=== PATIENT | male | born 1935 | race Caucasian/White ===

== ENCOUNTER 2016-04-23 06:56 | Inpatient (IN) | payer MEDICARE ==
--- NOTE | ~2016-04-23 | HP ---
History And Physical [id number] [place]. [address] NAME: ALEJANDRA JOHNS : 37 STATUS : ADM IN [facility]#: [id number] AGE: 81 ADM/REG DATE : 04/23/16 MR#: [id number] REPORT SERV DATE: 04/23/16 DICTATED BY: BRANDON ADAMSON. DATE: 04/23/16 REPORT STATUS : Draft TRANSCRIBED BY: MODL DATE: 04/23/16 DATE OF ADMISSION: 04/23/2016 CHIEF COMPLAINT: Shortness of breath. HISTORY OF PRESENT ILLNESS: An 81-year-old white male with past medical history of atrial fibrillation on anticoagulation, coronary artery disease, status post CABG x5, COPD on chronic 2 L of oxygen, diabetes type 2, peripheral arterial disease, presenting with shortness of breath x1 day. Apparently, the patient had a shortness of breath at approximately 0530 hours this morning. The patient states that, he had a recent left heart cath that was done on , 04/20/2016. Dr. Sharan Christensen, did the heart catheterization, which shows the patient having a stent occlusion that will be redone. Unfortunately, the patient states that he needs to wait until his kidney function improves before having another procedure. Unfortunately, the patient continues to smoke despite having these stent blockages. The patient states, he smokes at least a pack a day. His shortness of breath that occurred this morning prompted the patient to come to the hospital for further evaluation and treatment. The patient states that, he does have orthopnea, and he does have paroxysmal nocturnal dyspnea. He does sleep on a recliner. The patient cannot sleep lying flat. He denies any chest pain or palpitation. In addition, he has more dyspneic with physical exertion. He says, his distance of walking before short of breath is getting shorter. Nothing made the shortness of breath better or worse. He is coughing up some sputum, but the patient stated it is too dry at this time. PAST MEDICAL HISTORY: As above. MEDICATIONS: 1. The patient takes albuterol two puffs q.4 hours p.r.n. 2. Albuterol nebulizers q.4 hours p.r.n. 3. Eliquis 2.5 mg p.o. b.i.d. 4. Aspirin 81 mg daily. 5. Lipitor 80 mg p.o. at bedtime. 6. Bumex 1 mg p.o. q.a.m. 7. Vitamin D3 1000 units p.o. q.a.m. 8. Coenzyme Q 100 mg p.o. at bedtime. 9. Cardizem CD 360 mg p.o. daily. 10.Breo Ellipta 200/25 one puff b.i.d. 11.[place] 5/325 one tab q.6h p.r.n. 12.Xyzal 5 mg p.o. at bedtime. 13.Metoprolol 12.5 mg p.o. b.i.d. 14.Nitroglycerin sublingual p.r.n. 15.Potassium 20 mEq daily. ALLERGIES: TO MORPHINE AND TRAMADOL. SOCIAL HISTORY: Active smoker, one pack per day, nondrinker. History And Physical [address] [address] NAME: JOHNSALEJANDRA Kirsten : 37 STATUS : ADM IN [facility]#: [id number] AGE: 81 ADM/REG DATE : 04/23/16 MR#: [id number] REPORT SERV DATE: 04/23/16 DICTATED BY: BRANDON ADAMSON. DATE: 04/23/16 REPORT STATUS : Draft TRANSCRIBED BY: CALLUM DATE: 04/23/16 FAMILY HISTORY: Significant for aneurysm, kidney disease, and pancreatic cancer. REVIEW OF SYSTEMS: A 10-point review of systems conducted, which were negative except for above complaints. PHYSICAL EXAMINATION: VITAL SIGNS: Temp of 97.6, pulse of 167, respiratory rate 28, BP 114/101, O2 saturation 96% on 2 L. HEAD AND NECK: Normocephalic, atraumatic. CARDIOVASCULAR: S1, S2. Irregularly irregular. LUNGS: Decreased air entry at the bases. No wheezes, rales, or rhonchi. ABDOMEN: Soft, nontender, nondistended. Positive bowel sounds. No organomegaly. EXTREMITIES: No clubbing, cyanosis, or edema. NEUROLOGICAL: The patient is awake, alert, oriented x3. Cranial nerves 2 through 12 grossly intact. LABORATORY DATA: Sodium 139, potassium 4.1, chloride 104, bicarb 28, BUN 15, creatinine 0.92, glucose 144, calcium 9.8, magnesium 1.8. WBC 8.2, hemoglobin 13.9, hematocrit 38.5, platelets 231. ABG on 2 L shows pH of 7.39, pCO2 of 45, PaO2 of 71, bicarb 26.5, O2 saturation 94.3. Chest x-ray shows nonspecific bibasilar atelectatic changes in both lung bases, appears stable, old calcified plaque left side. EKG shows atrial fibrillation with 144 beats per minute. No gross ST elevation or depression appreciated. ASSESSMENT AND PLAN: 1. Shortness of breath secondary to acute exacerbation of chronic obstructive pulmonary disease with tobacco use. Advised the patient to quit smoking. In addition, we will start the patient on nicotine patches. We will also continue with Solu-Medrol for 20 mg IV b.i.d. with doxycycline 100 mg p.o. daily. In addition, we will also start the patient on breathing treatments. 2. Acute exacerbation of chronic obstructive pulmonary disease secondary to tobacco abuse. I advised the patient to quit smoking. Cause of problem #1. 3. Coronary artery disease, status post CABG. As per patient, the patient underwent heart cath on , 04/20/2016. The patient does have a stent block. The patient states that, he is supposed to undergo revascularization at later date due to his renal function. We will try to give the patient some IV hydration to help with his renal function. 4. Atrial fibrillation. Continue the patient on Eliquis and Cardizem for rate control. 5. Chronic hypoxic hypercapnic respiratory failure. Continue the patient's oxygen at 2 L. 6. Diabetes type 2. The patient is diet controlled. We will check HbA1c to see if his sugars are elevated. 7. Peripheral arterial disease, currently asymptomatic. 8. DVT prophylaxis. We will continue with the Eliquis. History And Physical [address] [address] NAME: JOHNSALEJANDRA TAVERAS Kirsten : 37 STATUS : ADM IN [facility]#: [id number] AGE: 81 ADM/REG DATE : 04/23/16 MR#: [id number] REPORT SERV DATE: 04/23/16 DICTATED BY: BRANDON ADAMSON DATE: 04/23/16 REPORT STATUS : Draft TRANSCRIBED BY: CALLUM DATE: 04/23/16 ANOOP/CALLUM Brandon Adamson MD / [id number] CC: Brandon Adamson MD
--- NOTE | ~2016-04-23 | DS ---
Discharge Summary [facility] [address] [facility] [place]. [address] NAME: ALEJANDRA JOHNS : 37 STATUS : DIS IN PAT#: [id number] AGE: 81 ADM/REG DATE : 04/23/16 MR#: [id number] REPORT SERV DATE: 04/29/16 DICTATED BY: ENA CROUCH DATE: 04/29/16 REPORT STATUS : Draft TRANSCRIBED BY: MODL DATE: 04/29/16 ADMISSION DATE: 04/23/2016 DISCHARGE DATE: 04/29/2016 DISCHARGE DIAGNOSIS: 1. Acute on chronic respiratory failure, improved, back to his normal breathing status. 2. Acute on chronic chronic obstructive pulmonary disease exacerbation. 3. Cor pulmonale, the patient was treated with extra Bumex IV and had improvement. 4. Coronary artery disease. 5. Sputum positive for Stenotrophomonas, was put on Bactrim, tolerating very well. There is no evidence of pneumonia. 6. Chronic atrial fibrillation. HISTORY OF PRESENT ILLNESS: This is an 81-year-old male patient, who does have COPD and also occluded coronary artery disease, who came to the hospital with a complaint of shortness of breath. The patient was treated as a COPD exacerbation initially. When I started to take care of this patient, a more fluid-related issue was noted. He was given extra Bumex and then improved very well; however, he still has the "spells." The spells are usually come in the morning time, between 3 to 6 and up to 8 o'clock in the morning time with the feeling of chest tightness. Initially, I thought that was related with lung disease or hypoxia, but he did not show significant hypoxia level along with these spells. Therefore, Dr. Christensen was consulted to look at his symptoms again for possible angina symptoms. Dr. Christensen said there is nothing procedure-suresh that can be done for this patient, he does have a very complicated coronary artery disease, but he has had a negative stress test perfusion-suresh, so he had a negative stress test last month and had to have a cardiac catheterization due to the Holter monitor showing a bidirectional ventricular tachycardia which was not reproduced on this admission. When he did a cardiac catheterization, he saw some occluded stent, but it was not mechanically reversible. He told the patient, and the patient is not a candidate for anything procedure-suresh but also he does have pretty good ejection fraction and the perfusion study was negative. Therefore, he recommended continuing nitroglycerin, long acting, for possible happening of his symptoms early in the morning time. I recommend the patient to increase his home oxygen during the nighttime up to 4 L and taking the mononitrate at nighttime and to see the improvement. Overall, when he presented in the hospital, even the very first day, his ABG was not very abnormal at all. The pH was 7.4, pCO2 was 42, pO2 was 87, and bicarb was 25.3. 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 The patient and family are pleased and understood about the current treatment plan and followup plan, he maximized inpatient benefit, and will be discharged to home. DISCHARGE MEDICATION: Imdur 60 mg once a day and continue other medications including Eliquis 2.5 mg twice a day, aspirin 81 mg once a day, Lipitor 80 mg once at nighttime, Bumex 1 mg once in the morning time, coenzyme Q once a day, Cardizem 360 mg once a day, Xyzal 5 mg Discharge Summary [address] [address] NAME: ALEJANDRA JOHNS : 37 STATUS : DIS IN PAT#: [id number] AGE: 81 ADM/REG DATE : 04/23/16 MR#: [id number] REPORT SERV DATE: 04/29/16 DICTATED BY: ENA CROUCH DATE: 04/29/16 REPORT STATUS : Draft TRANSCRIBED BY: MODL DATE: 04/29/16 once at bedtime, Lopressor 12.5 mg twice a day, Bactrim DS twice a day, seven more days, and continue the [place] as needed. Continue the Breo and albuterol as needed. DISPOSITION: The patient is discharged to home in stable condition with family. The patient will be followed by primary care physician, Dr. Wahl, and Dr. Christensen as an outpatient. TIME SPENT: More than 30 minutes on discharge coordination and education. EKL/MODL Ena Crouch M.D. / [id number] CC: Ena Crouch M.D.
[~2016-04-23 06:56] MED LIST: ADVAIR250 INH; ASAB PO; AUG500 PO; BREO ELLIPTA 21 EACH INH; BUM1 PO; CARDCD180 PO; CARDCD300 PO; CARDCD360 PO; CARTIA XT300 MG/24 PO; CO Q-10100 MG PO; ELIQUIS 2.5 MG2.5 MG PO; FLONASE NAS; HALF81 PO; HYZAAR1 TAB PO; IMOD PO; IVVIBRA; KDUR20 PO; KLOR-CON M2020 MEQ PO; LIPITOR80 MG PO; LOP25 PO; LORTAB 5 PO; MIRALAXPKT PO; NICODERM C14 MG/24 H TOP; NICODERM C21 MG/241 TOP; NITROSTAT0.4 MG SL; NORCO1 TA1 PO; P1 PO; P20 PO; PLAVIX PO; PROAIR HFA INH; PROVENTSOL INH; SENTAB PO; SPIRIVA INH; T PO; TESSALON200 MG PO; VIBRATAB100 MG PO; VITAMIN D31000 UNIT PO; XYZAL5 MG PO
[2016-04-23 07:34] LABS: ALLENS TEST Pos; BE (BASE EXCESS) 1.1 MEQ/L (0 +/- 2.5); CARBOXYHEMOGLOBIN 2.5 % (0-3); HCO3 (ACTUAL BICARBONATE) 26.5 MEQ/L (23-27); INSTRUMENT SERIAL # 8087; METHEMOGLOBIN 0.3 % (0-3); O2 CONTENT 18.1 VOL% (18-24); OPERATOR ID 14335; PCO2 (CO2 TENSION) 45 MMHG (35-45); PO2 (O2 TENSION) 71 MMHG (79-93); SAMPLE Arterial; pH 7.39 (7.37-7.43)
[2016-04-23 07:40] LABS: BASOPHILS 0.5 %; BASOPHILS ABSOLUTE 0.04 10/3/uL (0.0-0.16); EOSINOPHILS 1.5 %; EOSINOPHILS ABSOLUTE 0.12 10/3/uL (0.0-0.53); HEMATOCRIT 38.5 % (40.0-51.0); IMMATURE GRANULOCYTES 0.5 %; IMMATURE GRANULOCYTES ABSOLUTE 0.04 10/3/uL (0.0-0.11); LYMPHOCYTES 10.7 %; LYMPHOCYTES ABSOLUTE 0.88 10/3/uL (0.67-4.30); MEAN CORPUS HGB CONC 33.8 g/dL (32.0-36.0); MEAN CORPUSCULAR HEMOGLOB 31.1 pg (26.0-34.0); MEAN CORPUSCULAR VOLUME 92.1 fL (80-100); MONOCYTES 8.9 %; MONOCYTES ABSOLUTE 0.73 10/3/uL (0.21-1.20); NEUTROPHILS 77.9 %; NEUTROPHILS ABSOLUTE 6.43 10/3/uL (2.02-8.40); PLATELET COUNT 231 10/3/uL (150-400); RBC DISTRIBUTION WIDTH 14.7 % (12.0-16.0); RED CELL COUNT 4.18 10/6/uL (4.7-6.1); WHITE BLOOD CELLS 8.2 10/3/uL (4.5-10.5)
[2016-04-23 07:41] LABS: MANUAL DIFF NO %
[2016-04-23 07:48] LABS: INTERNATIONAL NORMAL RATI 1.3 UNITS (-); PARTIAL THROMBO TIME 34.9 SEC (22.5-37.2); PROTIME (NOT ORD) 15.9 SEC (12.0-14.5)
[2016-04-23 07:52] LABS: INFLUENZA A SCREEN NEGATIVE (NEGATIVE); INFLUENZA B SCREEN NEGATIVE (NEGATIVE)
[2016-04-23 07:56] LABS: BUN (BLOOD UREA NITROGEN) 15 MG/DL (6-23); CALCIUM, SERUM 8.8 MG/DL (8.5-10.4); CHEST PAIN PROFILE TAT 0 Hrs 20 Mins; CHLORIDE, SERUM 104 MMOL/L (96-112); CO2 (CARBON DIOXIDE) 28 MMOL/L (24-34); CREATININE 0.92 MG/DL (0.70-1.30); GFR AFRICAN AMERICAN 91 ML/MIN (>=60); GFR NON AFRICAN AMERICAN 78 ML/MIN (>=60); POTASSIUM, SERUM 4.1 MMOL/L (3.5-5.3); SODIUM, SERUM 139 MMOL/L (135-148); TROPONIN I <0.02 NG/ML (<0.05)
[2016-04-23 07:57] LABS: GLUCOSE, SERUM 144 MG/DL (60-99)
[2016-04-23 08:58] LABS: LACTATE 0.9 MMOL/L (0.3-2.4)
[2016-04-24 04:48] LABS: ALLENS TEST Pos; BE (BASE EXCESS) 0.5 MEQ/L (0 +/- 2.5); CARBOXYHEMOGLOBIN 0.8 % (0-3); DEVICE NC; HCO3 (ACTUAL BICARBONATE) 25.3 MEQ/L (23-27); HEMOBLOGIN CONTENT 13.2 G/DL (14-18); INSTRUMENT SERIAL # 8083; METHEMOGLOBIN 0.1 % (0-3); O2 CONTENT 17.8 VOL% (18-24); OPERATOR ID 35190; PCO2 (CO2 TENSION) 42 MMHG (35-45); PO2 (O2 TENSION) 87 MMHG (79-93); SAMPLE Arterial
[2016-04-24 05:34] LABS: BASOPHILS 0.1 %; BASOPHILS ABSOLUTE 0.01 10/3/uL (0.0-0.16); EOSINOPHILS 0 %; HEMATOCRIT 38.2 % (40.0-51.0); HEMOGLOBIN 12.8 g/dL (13.6-17.8); IMMATURE GRANULOCYTES 0.1 %; IMMATURE GRANULOCYTES ABSOLUTE 0.01 10/3/uL (0.0-0.11); LYMPHOCYTES 5.1 %; LYMPHOCYTES ABSOLUTE 0.52 10/3/uL (0.67-4.30); MEAN CORPUS HGB CONC 33.5 g/dL (32.0-36.0); MEAN CORPUSCULAR HEMOGLOB 30.7 pg (26.0-34.0); MEAN CORPUSCULAR VOLUME 91.6 fL (80-100); MEAN PLATELET VOLUME 10.2 fL (9.2-13.0); MONOCYTES 3.5 %; MONOCYTES ABSOLUTE 0.36 10/3/uL (0.21-1.20); NEUTROPHILS 91.2 %; NEUTROPHILS ABSOLUTE 9.25 10/3/uL (2.02-8.40); PLATELET COUNT 242 10/3/uL (150-400); RBC DISTRIBUTION WIDTH 14.4 % (12.0-16.0); RED CELL COUNT 4.17 10/6/uL (4.7-6.1); WHITE BLOOD CELLS 10.2 10/3/uL (4.5-10.5)
[2016-04-24 05:35] LABS: MANUAL DIFF NO %
[2016-04-24 05:50] LABS: A/G RATIO 1.1 (0.7-1.9); ALBUMIN 3.6 G/DL (3.5-5.0); ALKALINE PHOSPHATASE 102 U/L (45-117); CALCIUM, SERUM 8.8 MG/DL (8.5-10.4); CHLORIDE, SERUM 101 MMOL/L (96-112); CHOLESTEROL 102 MG/DL (< 200); CO2 (CARBON DIOXIDE) 29 MMOL/L (24-34); CREATININE 1.13 MG/DL (0.70-1.30); GFR AFRICAN AMERICAN 71 ML/MIN (>=60); GFR NON AFRICAN AMERICAN 61 ML/MIN (>=60); GLOBULIN 3.4 G/DL (2.5-4.1); GLUCOSE, SERUM 171 MG/DL (60-99); HDL CHOLESTEROL 50 MG/DL (> 39); LDL CHOLESTEROL 45 MG/DL (< 130); NON-HDL CHOLESTEROL 52 MG/DL (< 160); POTASSIUM, SERUM 4.3 MMOL/L (3.5-5.3); SGOT(AST) 27 U/L (5-40); SGPT(ALT) 31 U/L (5-65); SODIUM, SERUM 138 MMOL/L (135-148); TRIGLYCERIDE 38 MG/DL (< 150)
[2016-04-24 05:51] LABS: BUN (BLOOD UREA NITROGEN) 22 MG/DL (6-23); PHOSPHORUS, SERUM 3.7 MG/DL (2.5-4.5); TOTAL BILIRUBIN 0.7 MG/DL (0-1.2)
[2016-04-25 04:35] LABS: BASOPHILS 0.1 %; BASOPHILS ABSOLUTE 0.01 10/3/uL (0.0-0.16); EOSINOPHILS 0 %; HEMATOCRIT 36.5 % (40.0-51.0); HEMOGLOBIN 12.2 g/dL (13.6-17.8); IMMATURE GRANULOCYTES 0.4 %; IMMATURE GRANULOCYTES ABSOLUTE 0.06 10/3/uL (0.0-0.11); LYMPHOCYTES 3.2 %; LYMPHOCYTES ABSOLUTE 0.48 10/3/uL (0.67-4.30); MANUAL DIFF NO %; MEAN CORPUS HGB CONC 33.4 g/dL (32.0-36.0); MEAN CORPUSCULAR HEMOGLOB 30.8 pg (26.0-34.0); MEAN CORPUSCULAR VOLUME 92.2 fL (80-100); MEAN PLATELET VOLUME 10.2 fL (9.2-13.0); MONOCYTES 5.6 %; MONOCYTES ABSOLUTE 0.84 10/3/uL (0.21-1.20); NEUTROPHILS 90.7 %; NEUTROPHILS ABSOLUTE 13.61 10/3/uL (2.02-8.40); PLATELET COUNT 255 10/3/uL (150-400); RBC DISTRIBUTION WIDTH 14.6 % (12.0-16.0); RED CELL COUNT 3.96 10/6/uL (4.7-6.1)
[2016-04-25 04:40] LABS: A/G RATIO 1.1 (0.7-1.9); ALBUMIN 3.8 G/DL (3.5-5.0); ALKALINE PHOSPHATASE 86 U/L (45-117); BUN (BLOOD UREA NITROGEN) 30 MG/DL (6-23); CALCIUM, SERUM 9.1 MG/DL (8.5-10.4); CHLORIDE, SERUM 97 MMOL/L (96-112); CO2 (CARBON DIOXIDE) 30 MMOL/L (24-34); CREATININE 0.97 MG/DL (0.70-1.30); GFR AFRICAN AMERICAN 85 ML/MIN (>=60); GFR NON AFRICAN AMERICAN 73 ML/MIN (>=60); GLOBULIN 3.4 G/DL (2.5-4.1); GLUCOSE, SERUM 156 MG/DL (60-99); PHOSPHORUS, SERUM 3.6 MG/DL (2.5-4.5); POTASSIUM, SERUM 4.2 MMOL/L (3.5-5.3); SGOT(AST) 30 U/L (5-40); SGPT(ALT) 34 U/L (5-65); SODIUM, SERUM 136 MMOL/L (135-148); TOTAL BILIRUBIN 0.6 MG/DL (0-1.2); TOTAL PROTEIN 7.2 G/DL (6.0-8.5)
[2016-04-25 15:55] LABS: CK-MB 10.5 NG/ML; TROPONIN I <0.02 NG/ML (<0.05)
[2016-04-25 15:56] LABS: CKMB INDEX (NOT ORD) 6.1; CPK 173 U/L (0-200)
[2016-04-26 05:10] LABS: BASOPHILS 0 %; CALCIUM, SERUM 8.9 MG/DL (8.5-10.4); CHLORIDE, SERUM 99 MMOL/L (96-112); CO2 (CARBON DIOXIDE) 30 MMOL/L (24-34); CREATININE 1.13 MG/DL (0.70-1.30); EOSINOPHILS 0.1 %; EOSINOPHILS ABSOLUTE 0.01 10/3/uL (0.0-0.53); GFR AFRICAN AMERICAN 71 ML/MIN (>=60); GFR NON AFRICAN AMERICAN 61 ML/MIN (>=60); GLUCOSE, SERUM 153 MG/DL (60-99); HEMATOCRIT 39.5 % (40.0-51.0); HEMOGLOBIN 13.4 g/dL (13.6-17.8); IMMATURE GRANULOCYTES 0.3 %; IMMATURE GRANULOCYTES ABSOLUTE 0.04 10/3/uL (0.0-0.11); LYMPHOCYTES 3.9 %; LYMPHOCYTES ABSOLUTE 0.46 10/3/uL (0.67-4.30); MANUAL DIFF NO %; MEAN CORPUS HGB CONC 33.9 g/dL (32.0-36.0); MEAN CORPUSCULAR HEMOGLOB 31.7 pg (26.0-34.0); MEAN CORPUSCULAR VOLUME 93.4 fL (80-100); MEAN PLATELET VOLUME 10.2 fL (9.2-13.0); MONOCYTES 3.9 %; MONOCYTES ABSOLUTE 0.46 10/3/uL (0.21-1.20); NEUTROPHILS 91.8 %; NEUTROPHILS ABSOLUTE 10.73 10/3/uL (2.02-8.40); PLATELET COUNT 240 10/3/uL (150-400); RBC DISTRIBUTION WIDTH 14.5 % (12.0-16.0); RED CELL COUNT 4.23 10/6/uL (4.7-6.1); SODIUM, SERUM 138 MMOL/L (135-148); WHITE BLOOD CELLS 11.7 10/3/uL (4.5-10.5)
[2016-04-26 05:18] LABS: POTASSIUM, SERUM 4.6 MMOL/L (3.5-5.3)
[2016-04-26 05:19] LABS: BUN (BLOOD UREA NITROGEN) 39 MG/DL (6-23)
[2016-04-27 08:06] LABS: BUN (BLOOD UREA NITROGEN) 44 MG/DL (6-23); CALCIUM, SERUM 8.6 MG/DL (8.5-10.4); CHLORIDE, SERUM 97 MMOL/L (96-112); CO2 (CARBON DIOXIDE) 28 MMOL/L (24-34); CREATININE 1.11 MG/DL (0.70-1.30); GFR AFRICAN AMERICAN 72 ML/MIN (>=60); GFR NON AFRICAN AMERICAN 62 ML/MIN (>=60); GLUCOSE, SERUM 164 MG/DL (60-99); POTASSIUM, SERUM 4.3 MMOL/L (3.5-5.3); SODIUM, SERUM 135 MMOL/L (135-148)
[2016-04-29 06:36] LABS: CALCIUM, SERUM 8.7 MG/DL (8.5-10.4); CHLORIDE, SERUM 94 MMOL/L (96-112); CREATININE 1.01 MG/DL (0.70-1.30); GFR AFRICAN AMERICAN 81 ML/MIN (>=60); GFR NON AFRICAN AMERICAN 70 ML/MIN (>=60); GLUCOSE, SERUM 163 MG/DL (60-99); SODIUM, SERUM 136 MMOL/L (135-148)
[2016-04-29 06:37] LABS: BUN (BLOOD UREA NITROGEN) 34 MG/DL (6-23); CO2 (CARBON DIOXIDE) 35 MMOL/L (24-34)
[2016-04-29] MEDS ORDERED: BACTRIM DS1 TAB PO (14:31)
[2016-04-29] MEDS ORDERED: P10 PO (14:32)
[2016-04-29] MEDS ORDERED: IMDUR60 PO (14:33)
[2016-10-30] MEDS ORDERED: ELIQUIS 2.5 MG2.5 MG PO (20:06)
[2016-10-30] MEDS ORDERED: LOP25 PO (20:06)
[2016-10-30] MEDS ORDERED: HALF81 PO (20:07)
[2016-10-30] MEDS ORDERED: XYZAL5 MG PO (20:07)
[2016-10-30] MEDS ORDERED: IMDUR60 PO (20:08)
[2016-10-30] MEDS ORDERED: NORCO1 TA1 PO (20:09)
[2016-10-30] MEDS ORDERED: KDUR20 PO (20:09)
[2016-10-30] MEDS ORDERED: LIPITOR80 MG PO (20:11)
[2016-10-30] MEDS ORDERED: CARDCD360 PO (20:12)
[2016-10-30] MEDS ORDERED: BUM1 PO (20:12)
[2016-10-30] MEDS ORDERED: X25 PO (20:13)
[2016-10-30] MEDS ORDERED: CO Q-10100 MG PO (20:13)
[2016-10-30] MEDS ORDERED: ALBUTEROL0.083 % INH (20:15)
[2016-10-30] MEDS ORDERED: SPIRIVA RESPIMAT INH (20:15)
[2016-10-30] MEDS ORDERED: PROAIR HFA INH (20:16)
[2016-10-30] MEDS ORDERED: BREO ELLIPTA 21 EACH INH (20:16)
[2016-10-30] MEDS ORDERED: VITAMIN D31000 UNIT PO (20:17)
[2016-10-30] MEDS ORDERED: NITROSTAT0.4 MG SL (20:18)
== END 2016-04-29 17:01 | disposition home health service (06) | DRG 190 ==
LOC: ER 06:56 → 7NO 09:32
PROVIDERS: Emergency Medicine; Hospitalist; Internal Medicine
PROC: 4A023N7 Measurement of Cardiac Sampling and Pressure, Left Heart, Percutaneous Approach (ICD-10-PCS; principal; 2016-04-23)
PROC: B2111ZZ Fluoroscopy of Multiple Coronary Arteries using Low Osmolar Contrast (ICD-10-PCS; 2016-04-23)
PROC: B2151ZZ Fluoroscopy of Left Heart using Low Osmolar Contrast (ICD-10-PCS; 2016-04-23)
PROC: B41F1ZZ Fluoroscopy of Right Lower Extremity Arteries using Low Osmolar Contrast (ICD-10-PCS; 2016-04-23)
PROC: B2181ZZ Fluoroscopy of Left Internal Mammary Bypass Graft using Low Osmolar Contrast (ICD-10-PCS; 2016-04-23)
PROC: B2131ZZ Fluoroscopy of Multiple Coronary Artery Bypass Grafts using Low Osmolar Contrast (ICD-10-PCS; 2016-04-23)
DX: J44.1 Chronic obstructive pulmonary disease with (acute) exacerbation (principal); J96.21 Acute and chronic respiratory failure with hypoxia; I27.81 Cor pulmonale (chronic); Z99.81 Dependence on supplemental oxygen; B96.89 Other specified bacterial agents as the cause of diseases classified elsewhere; E11.9 Type 2 diabetes mellitus without complications; I25.810 Atherosclerosis of coronary artery bypass graft(s) without angina pectoris; T82.855A Stenosis of coronary artery stent, initial encounter; I48.2 Chronic atrial fibrillation; F17.210 Nicotine dependence, cigarettes, uncomplicated; E78.5 Hyperlipidemia, unspecified; J45.909 Unspecified asthma, uncomplicated; M19.90 Unspecified osteoarthritis, unspecified site; E78.00 Pure hypercholesterolemia, unspecified; Z79.82 Long term (current) use of aspirin; Z79.52 Long term (current) use of systemic steroids; Z79.899 Other long term (current) drug therapy; Z82.49 Family history of ischemic heart disease and other diseases of the circulatory system; Z88.8 Allergy status to other drugs, medicaments and biological substances; Z98.890 Other specified postprocedural states
CPT/HCPCS: 36600; 71010; 71020; 80048; 80053; 80061; 82550; 82553; 82805; 82962; 83036; 83605; 83735; 84100; 84145; 84484; 85025; 85610; 85730; 87040; 87070; 87077; 87186; 87205; 87804; 93005; 93459; 94640; 96374; 96375; 99291; A9270-GY; C1760; C1769; J0456; J2250; J2920; J3010; Q9967

== ENCOUNTER 2016-08-03 03:46 | Inpatient (IN) | payer MEDICARE ==
--- NOTE | ~2016-08-03 | HP ---
History And Physical [address] [place]. [address] NAME: ALEJANDRA JOHNS : 37 STATUS : ADM IN [facility]#: [id number] AGE: 81 ADM/REG DATE : 08/03/16 MR#: [id number] REPORT SERV DATE: 08/03/16 DICTATED BY: GURMEET NUNES DATE: 08/03/16 REPORT STATUS : Draft TRANSCRIBED BY: MODL DATE: 08/03/16 DATE OF ADMISSION: 08/03/2016 CHIEF COMPLAINT: An 81-year-old male presenting with cough and shortness of breath. HISTORY OF PRESENTING ILLNESS: The patient's history was obtained through an interview with the patient and daughter, coupled with review of [facility] and [facility] medical records. For about two or three weeks, the patient has had a cold "coming on," but over the last four days, his symptoms have become severe and even debilitating. He describes a cough productive of a white sputum, shortness of breath characterized by dyspnea on exertion with a prominent wheeze. No lower extremity edema. No orthopnea. No paroxysmal nocturnal dyspnea. He has had chest discomfort at the base of his lungs radiating to his shoulder blades bilaterally, exacerbated by coughing, a sharp quality, 8 to 9/10 severity. No lightheadedness. No fevers or chills. No nausea or vomiting. No diarrhea. No abdominal pain. No cough. He has felt his heart "racing" with subjective palpitations and skipping sensation. No confusion. REVIEW OF SYSTEMS: Otherwise, a 14-point review of systems was obtained and was negative. PAST MEDICAL HISTORY: 1. COPD. 2. Congestive heart failure with cor pulmonale. 3. Coronary artery disease, status post CABG. Most recent catheterization of the heart in 04/2016 showed occluded grafts x2, followed by Dr. Christensen. 4. Atrial fibrillation. 5. Hypertension. 6. Stenotrophomonas. 7. Peripheral arterial disease. 8. Colon polyps, seen by Dr. Lopez. PAST SURGICAL HISTORY: 1. CABG in 2003. 2. Skin cancer removals. ALLERGIES: MORPHINE AND TRAMADOL. SOCIAL HISTORY: Lives in [place], [place]. He is , but his is in poor health. 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 He has three daughters. He continues to smoke cigarettes. No alcohol use. History And Physical [address] [place]. [address] NAME: ALEJANDRA JOHNS : 37 STATUS : ADM IN [facility]#: [id number] AGE: 81 ADM/REG DATE : 08/03/16 MR#: [id number] REPORT SERV DATE: 08/03/16 DICTATED BY: GURMEET NUNES DATE: 08/03/16 REPORT STATUS : Draft TRANSCRIBED BY: MODL DATE: 08/03/16 FAMILY HISTORY: Sibling with pancreatic cancer. Father with renal cell carcinoma. Mother with cerebral aneurysm. CURRENT MEDICATIONS: The patient does not know his current medications. I have asked the Pharmacy to investigate and put together medication list for us. PHYSICAL EXAMINATION: VITAL SIGNS: Temperature 97.2, pulse 127, blood pressure 123/75, respiratory rate 28, O2 saturation 88% on 2 L nasal cannula. GENERAL: An ill-appearing male in obvious distress from shortness of breath, heaving with his shoulders to assist in breathing. HEENT: Pupils equal, round, and reactive to light. No conjunctival pallor. No scleral icterus. Nares are patent. Oropharynx is clear of obstruction. Moist mucous membranes. NECK: Trachea midline. No thyromegaly. LYMPH: No cervical lymphadenopathy. No supraclavicular lymphadenopathy. RESPIRATORY: The patient has inspiratory and expiratory wheezes. A very "tight" exam. Scattered rhonchi. No focal egophony. A very labored respiratory effort. CARDIOVASCULAR: Tachycardic. Irregularly irregular rhythm. No murmurs, rubs, or gallops. No extremity edema is appreciated other than chronic swelling around his ankles. ABDOMEN: Soft, nontender, nondistended. Normal bowel sounds auscultated throughout. No hepatosplenomegaly. DERMATOLOGICAL: Warm and dry extremities. No pallor. No cyanosis. PSYCHIATRIC: Normal affect. Good mood. Alert and oriented x3. LABORATORY DATA: ABG demonstrates a pH of 7.43, PaCO2 of 41, PaO2 of 74, and a bicarb of 27 on 3 L nasal cannula. White blood cell count 22.2, hemoglobin 13, hematocrit 39, and platelets 266. Sodium 136, potassium 4.0, chloride 100, bicarb 29, BUN 16, creatinine 1.06, glucose 142. Brain natriuretic peptide 191. Troponin negative. INR 1.6. IMAGIN. Chest x-ray by my own evaluation shows COPD. No obvious infiltrates. 2. EKG by my own evaluation shows rapid atrial fibrillation. ASSESSMENT AND PLAN: 1. Hypoxic respiratory failure. Provide supportive care. IV Solu-Medrol and DuoNeb nebulizers. 2. Systemic inflammatory response syndrome versus sepsis. Check blood cultures. Check lactic acid. Check strep and Legionella. Start empiric IV antibiotics. Check procalcitonin. 3. Rapid atrial fibrillation. Start p.o. Cardizem. Check telemetry. 4. Cor pulmonale. Try diuretics. KPL/MODL History And Physical [address] [address] NAME: ALEJANDRA JOHNS : 37 STATUS : ADM IN [facility]#: [id number] AGE: 81 ADM/REG DATE : 08/03/16 MR#: [id number] REPORT SERV DATE: 08/03/16 DICTATED BY: GURMEET NUNES DATE: 08/03/16 REPORT STATUS : Draft TRANSCRIBED BY: CALLUM DATE: 08/03/16 Gurmeet Nunes M.D. / [id number] CC: Noble Martins M.D.
--- NOTE | ~2016-08-03 | DS ---
Discharge Summary [facility] [address] [place]. [address] NAME: ALEJANDRA JOHNS : 37 STATUS : DIS IN PAT#: [id number] AGE: 81 ADM/REG DATE : 08/03/16 MR#: [id number] REPORT SERV DATE: 08/05/16 DICTATED BY: CHON LEAHY DATE: 08/05/16 REPORT STATUS : Draft TRANSCRIBED BY: MODL DATE: 08/05/16 ADMISSION DATE: 08/03/2016 DISCHARGE DATE: 08/05/2016 DISCHARGE DIAGNOSES: 1. Acute on chronic hypoxic respiratory failure, present on admission. 2. Acute exacerbation of chronic obstructive pulmonary disease. 3. Congestive heart failure with cor pulmonale. 4. Coronary artery disease, status post CABG. 5. Chronic atrial fibrillation, on anticoagulation. 6. Hypertension. 7. Peripheral arterial disease with carotid endarterectomy in the past. 8. Colon polyps, seen by Dr. Lopez. 9. Gastroesophageal reflux. 10.Type 2 diabetes mellitus that is diet controlled. CONSULTANTS DURING THIS HOSPITALIZATION: None. INVASIVE PROCEDURES DONE DURING THIS HOSPITALIZATION: None. BRIEF HISTORY OF PRESENT ILLNESS: The patient is an 81-year-old male who has a history of known chronic obstructive pulmonary disease oxygen dependent for about two weeks, felt like he had a cold coming on, and became very weak and severely debilitated, so he was admitted. For detailed history and physical exam, please see note dictated by Dr. Naveen Wilkinson on 08/03/2016. HOSPITAL COURSE: After being admitted to the hospital, this patient was supported with oxygen, aggressive nebulizing treatments, IV Solu-Medrol, and antibiotics. When I saw the patient in followup, this patient's home medications were not addressed, so I addressed those personally. We continued his O2 support. We changed him to p.o. steroids as he was already doing well. His Eliquis was continued. There was no evidence of any sepsis or SIRS as evident on followup. His procalcitonin level was only 0.14. His white count did jump to about 18.9 that was thought to be due to steroid effect. This patient continued to do well. His status was changed inpatient because he was not quite as quick to resolve. Within 72 hours of hospitalization, this patient returned back to baseline as far as his breathing. He felt well enough that he wanted to go home and recover in the home setting. DISCHARGE DISPOSITION: Home. DISCHARGE ACTIVITY: As tolerated. DISCHARGE DIET: Low-sodium, 1800-calorie [employer] [employer] diet. DISCHARGE MEDICATIONS: Zithromax 250 mg one tablet daily for three more days, Omnicef 300 mg p.o. b.i.d. for four more days, prednisone 20 mg p.o. once daily for five days, Lopressor 25 mg one tablet twice daily, Eliquis 2.5 mg twice daily, aspirin 81 mg once daily, Lipitor 80 Discharge Summary [address] [address] NAME: ALEJANDRA JOHNS : 37 STATUS : DIS IN PAT#: [id number] AGE: 81 ADM/REG DATE : 08/03/16 MR#: [id number] REPORT SERV DATE: 08/05/16 DICTATED BY: CHON LEAHY DATE: 08/05/16 REPORT STATUS : Draft TRANSCRIBED BY: CALLUM DATE: 08/05/16 mg once at bedtime, Bumex 1 mg p.o. every morning, Cardizem CD 360 mg once daily, Imdur 60 mg once daily, albuterol 2 puffs every four hours p.r.n. for shortness of breath, [place] 5/325 one tablet every six hours p.r.n. for pain, Nitrostat 0.4 sublingual p.r.n. for chest pain, vitamin D 1000 units every morning, Proventil neb 1 every four hours, potassium 20 mEq once daily, Coenzyme Q10, Xyzal 5 mg once at bedtime, and Breo Ellipta 200/25 mcg one puff daily. DISCHARGE FOLLOWUP: Follow up with Dr. David Ballesteros in one week. More than 30 minutes spent planning this patient's discharge, reconciling medications, writing prescriptions, discussing hospital care, followup with the patient, and documenting this discharge. DICTATED BY: Noble Martins/CALLUM Chon Leahy M.D. / [id number] CC: Chon Leahy M.D. UNKNOWN David Ballesteros M.D.
[2016-08-03 02:58] LABS: ALLENS TEST Pos; BE (BASE EXCESS) 2.2 MEQ/L (0 +/- 2.5); CARBOXYHEMOGLOBIN 2.7 % (0-3); DEVICE NC; HCO3 (ACTUAL BICARBONATE) 26.7 MEQ/L (23-27); HEMOBLOGIN CONTENT 13.9 G/DL (14-18); INSTRUMENT SERIAL # 8087; METHEMOGLOBIN 0.2 % (0-3); O2 CONTENT 18.1 VOL% (18-24); OPERATOR ID 17589; PCO2 (CO2 TENSION) 41 MMHG (35-45); PO2 (O2 TENSION) 74 MMHG (79-93); SAMPLE Arterial; pH 7.43 (7.37-7.43)
[2016-08-03 03:08] LABS: BASOPHILS 0.1 %; BASOPHILS ABSOLUTE 0.03 10/3/uL (0.0-0.16); EOSINOPHILS 0 %; EOSINOPHILS ABSOLUTE 0.01 10/3/uL (0.0-0.53); HEMATOCRIT 38.7 % (40.0-51.0); HEMOGLOBIN 13.2 g/dL (13.6-17.8); IMMATURE GRANULOCYTES 0.6 %; IMMATURE GRANULOCYTES ABSOLUTE 0.14 10/3/uL (0.0-0.11); LYMPHOCYTES 5.9 %; LYMPHOCYTES ABSOLUTE 1.32 10/3/uL (0.67-4.30); MEAN CORPUS HGB CONC 34.1 g/dL (32.0-36.0); MEAN CORPUSCULAR HEMOGLOB 31.4 pg (26.0-34.0); MEAN CORPUSCULAR VOLUME 91.9 fL (80-100); MEAN PLATELET VOLUME 10.3 fL (9.2-13.0); MONOCYTES 8.9 %; MONOCYTES ABSOLUTE 1.98 10/3/uL (0.21-1.20); NEUTROPHILS 84.5 %; NEUTROPHILS ABSOLUTE 18.73 10/3/uL (2.02-8.40); PLATELET COUNT 266 10/3/uL (150-400); RED CELL COUNT 4.21 10/6/uL (4.7-6.1)
[2016-08-03 03:12] LABS: ER CBC TAT 0 Hrs 09 Mins; MANUAL DIFF NO %; WHITE BLOOD CELLS 22.2 10/3/uL (4.5-10.5)
[2016-08-03 03:18] LABS: INTERNATIONAL NORMAL RATI 1.6 UNITS (-)
[2016-08-03 03:19] LABS: PARTIAL THROMBO TIME 40.1 SEC (22.5-37.2); PROTIME (NOT ORD) 18.6 SEC (12.0-14.5)
[2016-08-03 03:26] LABS: CHEST PAIN PROFILE TAT 0 Hrs 23 Mins; CHLORIDE, SERUM 100 MMOL/L (96-112); CREATININE 1.06 MG/DL (0.70-1.30); GFR AFRICAN AMERICAN 76 ML/MIN (>=60); GFR NON AFRICAN AMERICAN 66 ML/MIN (>=60); GLUCOSE, SERUM 142 MG/DL (60-99); SODIUM, SERUM 136 MMOL/L (135-148); TROPONIN I <0.02 NG/ML (<0.05)
[2016-08-03 03:27] LABS: BUN (BLOOD UREA NITROGEN) 16 MG/DL (6-23); CO2 (CARBON DIOXIDE) 29 MMOL/L (24-34)
[~2016-08-03 03:46] MED LIST changes: +BACTRIM DS1 TAB PO; +IMDUR60 PO; +P10 PO
[2016-08-03 12:10] LABS: HEMATOCRIT 38.2 % (40.0-51.0); HEMOGLOBIN 12.9 g/dL (13.6-17.8); MEAN CORPUS HGB CONC 33.8 g/dL (32.0-36.0); MEAN CORPUSCULAR HEMOGLOB 31.4 pg (26.0-34.0); MEAN CORPUSCULAR VOLUME 92.9 fL (80-100); MEAN PLATELET VOLUME 9.7 fL (9.2-13.0); PLATELET COUNT 245 10/3/uL (150-400); RBC DISTRIBUTION WIDTH 14.1 % (12.0-16.0); RED CELL COUNT 4.11 10/6/uL (4.7-6.1); WHITE BLOOD CELLS 23.1 10/3/uL (4.5-10.5)
[2016-08-03 12:15] LABS: MANUAL DIFF YES %
[2016-08-03 12:18] LABS: INTERNATIONAL NORMAL RATI 1.5 UNITS (-); PARTIAL THROMBO TIME 37.3 SEC (22.5-37.2)
[2016-08-03 12:28] LABS: BAND NEUTROPHILS 1 %; MONOCYTES 2 %; SEGMENTED NEUTROPHIL (0) 95 %; TOTAL NUCLEATED CELLS 100
[2016-08-03 12:29] LABS: LYMPHOCYTES 2 %; PLATELET ESTIMATE ADQ (ADEQUATE); RBC MORPHOLOGY NORM (NORMAL)
[2016-08-03 12:38] LABS: A/G RATIO 0.9 (0.7-1.9); ALBUMIN 3.6 G/DL (3.5-5.0); BUN (BLOOD UREA NITROGEN) 17 MG/DL (6-23); CALCIUM, SERUM 9.1 MG/DL (8.5-10.4); CHLORIDE, SERUM 98 MMOL/L (96-112); CO2 (CARBON DIOXIDE) 31 MMOL/L (24-34); CREATININE 1.12 MG/DL (0.70-1.30); GFR AFRICAN AMERICAN 72 ML/MIN (>=60); GFR NON AFRICAN AMERICAN 62 ML/MIN (>=60); GLOBULIN 3.8 G/DL (2.5-4.1); POTASSIUM, SERUM 4.4 MMOL/L (3.5-5.3); SGOT(AST) 24 U/L (5-40); SGPT(ALT) 18 U/L (5-65); SODIUM, SERUM 136 MMOL/L (135-148); TOTAL PROTEIN 7.4 G/DL (6.0-8.5); TROPONIN I <0.02 NG/ML (<0.05)
[2016-08-03 12:39] LABS: ALKALINE PHOSPHATASE 99 U/L (45-117); GLUCOSE, SERUM 176 MG/DL (60-99); TOTAL BILIRUBIN 1.6 MG/DL (0-1.2); ULTRASENSITIVE TSH 0.896 MCIU/ML (0.358-3.740)
[2016-08-03 13:27] LABS: PROCALCITONIN 0.14 ng/mL (<0.5)
[2016-08-04 07:31] LABS: BASOPHILS 0.1 %; BASOPHILS ABSOLUTE 0.01 10/3/uL (0.0-0.16); EOSINOPHILS 0 %; HEMATOCRIT 36.3 % (40.0-51.0); HEMOGLOBIN 12.2 g/dL (13.6-17.8); IMMATURE GRANULOCYTES 0.5 %; IMMATURE GRANULOCYTES ABSOLUTE 0.09 10/3/uL (0.0-0.11); LYMPHOCYTES 3.8 %; LYMPHOCYTES ABSOLUTE 0.71 10/3/uL (0.67-4.30); MANUAL DIFF NO %; MEAN CORPUS HGB CONC 33.6 g/dL (32.0-36.0); MEAN CORPUSCULAR VOLUME 92.1 fL (80-100); MONOCYTES 4.4 %; MONOCYTES ABSOLUTE 0.83 10/3/uL (0.21-1.20); NEUTROPHILS 91.2 %; NEUTROPHILS ABSOLUTE 17.29 10/3/uL (2.02-8.40); PLATELET COUNT 244 10/3/uL (150-400); RBC DISTRIBUTION WIDTH 13.9 % (12.0-16.0); RED CELL COUNT 3.94 10/6/uL (4.7-6.1); WHITE BLOOD CELLS 18.9 10/3/uL (4.5-10.5)
[2016-08-04 07:39] LABS: ALBUMIN 3.3 G/DL (3.5-5.0); CHLORIDE, SERUM 101 MMOL/L (96-112); CO2 (CARBON DIOXIDE) 30 MMOL/L (24-34); CREATININE 1.03 MG/DL (0.70-1.30); GFR AFRICAN AMERICAN 79 ML/MIN (>=60); GFR NON AFRICAN AMERICAN 68 ML/MIN (>=60); GLUCOSE, SERUM 146 MG/DL (60-99); PHOSPHORUS, SERUM 2.8 MG/DL (2.5-4.5); POTASSIUM, SERUM 4.5 MMOL/L (3.5-5.3); SODIUM, SERUM 138 MMOL/L (135-148)
[2016-08-04 07:40] LABS: BUN (BLOOD UREA NITROGEN) 23 MG/DL (6-23)
[2016-08-05 08:04] LABS: BASOPHILS 0 %; BASOPHILS ABSOLUTE 0.01 10/3/uL (0.0-0.16); EOSINOPHILS 0 %; HEMOGLOBIN 12.2 g/dL (13.6-17.8); IMMATURE GRANULOCYTES 0.6 %; IMMATURE GRANULOCYTES ABSOLUTE 0.12 10/3/uL (0.0-0.11); LYMPHOCYTES 2.8 %; MEAN CORPUS HGB CONC 33.9 g/dL (32.0-36.0); MEAN CORPUSCULAR HEMOGLOB 31.3 pg (26.0-34.0); MEAN CORPUSCULAR VOLUME 92.3 fL (80-100); MEAN PLATELET VOLUME 9.9 fL (9.2-13.0); MONOCYTES 5.1 %; NEUTROPHILS 91.5 %; NEUTROPHILS ABSOLUTE 19.55 10/3/uL (2.02-8.40); PLATELET COUNT 285 10/3/uL (150-400); RBC DISTRIBUTION WIDTH 14.2 % (12.0-16.0); WHITE BLOOD CELLS 21.4 10/3/uL (4.5-10.5)
[2016-08-05 08:08] LABS: MANUAL DIFF NO %
[2016-08-05] MEDS ORDERED: LOP25 PO (10:28)
[2016-08-05] MEDS ORDERED: OMNICEF300 PO (10:29)
[2016-08-05] MEDS ORDERED: ZITH250 PO (10:29)
[2016-08-05] MEDS ORDERED: P20 PO (10:30)
[2016-10-30] MEDS ORDERED: LOP25 PO (20:06)
[2016-10-30] MEDS ORDERED: ELIQUIS 2.5 MG2.5 MG PO (20:06)
[2016-10-30] MEDS ORDERED: HALF81 PO (20:07)
[2016-10-30] MEDS ORDERED: XYZAL5 MG PO (20:07)
[2016-10-30] MEDS ORDERED: IMDUR60 PO (20:08)
[2016-10-30] MEDS ORDERED: KDUR20 PO (20:09)
[2016-10-30] MEDS ORDERED: NORCO1 TA1 PO (20:09)
[2016-10-30] MEDS ORDERED: LIPITOR80 MG PO (20:11)
[2016-10-30] MEDS ORDERED: CARDCD360 PO (20:12)
[2016-10-30] MEDS ORDERED: BUM1 PO (20:12)
[2016-10-30] MEDS ORDERED: X25 PO (20:13)
[2016-10-30] MEDS ORDERED: CO Q-10100 MG PO (20:13)
[2016-10-30] MEDS ORDERED: SPIRIVA RESPIMAT INH (20:15)
[2016-10-30] MEDS ORDERED: ALBUTEROL0.083 % INH (20:15)
[2016-10-30] MEDS ORDERED: PROAIR HFA INH (20:16)
[2016-10-30] MEDS ORDERED: BREO ELLIPTA 21 EACH INH (20:16)
[2016-10-30] MEDS ORDERED: VITAMIN D31000 UNIT PO (20:17)
[2016-10-30] MEDS ORDERED: NITROSTAT0.4 MG SL (20:18)
== END 2016-08-05 12:49 | disposition home health service (06) | DRG 189 ==
LOC: ER 03:46 → CDU1 06:03 → CDU2 06:37 → 1SO 15:23
PROVIDERS: Internal Medicine; Specialist
DX: J96.21 Acute and chronic respiratory failure with hypoxia (principal); J44.1 Chronic obstructive pulmonary disease with (acute) exacerbation; I27.81 Cor pulmonale (chronic); I50.9 Heart failure, unspecified; I11.0 Hypertensive heart disease with heart failure; I48.2 Chronic atrial fibrillation; E11.9 Type 2 diabetes mellitus without complications; Z99.81 Dependence on supplemental oxygen; I73.9 Peripheral vascular disease, unspecified; I25.10 Atherosclerotic heart disease of native coronary artery without angina pectoris; K21.9 Gastro-esophageal reflux disease without esophagitis; F17.210 Nicotine dependence, cigarettes, uncomplicated; Z79.01 Long term (current) use of anticoagulants; Z79.82 Long term (current) use of aspirin; Z79.891 Long term (current) use of opiate analgesic; Z79.899 Other long term (current) drug therapy; Z95.1 Presence of aortocoronary bypass graft; Z86.010 Personal history of colon polyps; Z85.828 Personal history of other malignant neoplasm of skin; Z88.5 Allergy status to narcotic agent
CPT/HCPCS: 36600; 71010; 71020; 80048; 80053; 80069; 82805; 83605; 83735; 83880; 84145; 84443; 84484; 85025; 85610; 85730; 87040; 93005; 94640; 96374; 96375; 99285; A9270-GY; J0456; J1940; J2920; J2930; J3475